=== PATIENT | female | born 1975 | race Caucasian/White ===

== ENCOUNTER → 2024-04-02 14:40 | Outpatient (REF) | payer OTHER, SELFPAY | LOC: HWRAD 14:40 | PROVIDERS: ATTENDING PHYSICIAN Nurse Practitioner Women's Health; FAMILY PHYSICIAN Family Medicine | DX: N83.201 Unspecified ovarian cyst, right side (principal) | CPT/HCPCS: 76830; 76856 ==

== ENCOUNTER → 2025-06-11 15:02 | Outpatient (REF) | payer OTHER, SELFPAY | LOC: RAD 15:02 | PROVIDERS: ATTENDING PHYSICIAN Nurse Practitioner Women's Health; FAMILY PHYSICIAN Family Medicine | DX: D25.9 Leiomyoma of uterus, unspecified (principal) | CPT/HCPCS: 76830; 76856 ==